=== PATIENT | male | born 1995 | race Caucasian/White ===

== ENCOUNTER 2019-11-07 21:46 | Emergency (ER) | payer SELFPAY ==
--- NOTE | 2019-11-07 22:05 | ED_ITS ---
Entered by Adrienne Real, acting as scribe for Alejandro Andrews DO HPI - Psych General: Chief Complaint: Psychiatric Symptoms Stated Complaint: SI Time Seen by Provider: 11/07/19 22:33 [facility] ED PFSH: Social History Smoking and tobacco status: current every day smoker MDM - Psych MDM Narrative: Medical decision making narrative: 24-year-old male who would call the [place] PTSD hotline earlier in the evening, as he had been drinking. Evidently, his had left him a few hours earlier and taken the kids. He denies any suicidal ideation. He was seen originally by JOSH Velez. I agree with his history, assessment, work-up, and treatment. We consulted psychiatry, who visited via telemedicine with the patient in his room. The psychiatrist feels confident that this man has not suicidal, and he continues to deny. He is otherwise medically stable. He will be allowed home. Lab Data: Labs: Lab Results 11/07/19 11/07/19 11/07/19 Range/Units 22:02 22:42 22:42 WBC 7.5 (4.0-10.0) 10^3/ uL RBC 5.40 H (4.1-5.3) 10^6/u L Hgb 15.5 (11.7-16.6) g/dL Hct 46.1 (42.0-52.0) % MCV 85.4 (80-94) fL MCH 28.7 (28.0-34.0) pg MCHC 33.6 (30.0-36.0) g/dL RDW 12.4 (12.1-15.1) % Plt Count 322 (130-400) 10^3/c mm MPV 9.6 (7.4-10.4) fL Neut % (Auto) 45.7 % Lymph % (Auto) 45.5 % [place] % (Auto) 6.8 % Eos % (Auto) 1.2 % Baso % (Auto) 0.5 % Neut # (Auto) 3.4 (1.8-7.7) 10^3/u L Lymph # (Auto) 3.4 (0.8-4.8) 10^3/u L [place] # (Auto) 0.5 (0.2-0.9) 10^3/u L Eos # (Auto) 0.1 (0.0-0.8) 10^3/u L Baso # (Auto) 0.0 (0.0-0.1) 10^3/u L Nucleated RBC % (a uto) 0 % Nucleated RBCs # 0.0 /100WBC Sodium 145 (136-145) mmol/L Potassium 4.1 (3.5-5.1) mmol/L Chloride 104 (98-107) mmol/L Carbon Dioxide 27 (22-29) mmol/L Anion Gap 18.1 (5-19) BUN 9 (6-20) mg/dL Creatinine 1.0 (0.7-1.2) mg/dL GFR Calculation 91.8 (90-130) mL/min Glucose 106 (65-115) mg/dL Calcium 9.8 (8.5-10.5) mg/dL Total Bilirubin 0.2 (0.15-1.2) mg/dL AST 19 (0-40) U/L ALT 25 (0-41) U/L Alkaline Phosphata se 57 (40-130) IU/L Total Protein 8.2 (6.6-8.7) g/dL Albumin 5.1 (3.5-5.2) g/dL Globulin 3.1 (1.3-4.6) g/dL Salicylates < 0.3 L (3-10) mg/dL Urine Opiates Scre en Negative (Negative) ng/mL Acetaminophen < 5.0 L (10-30) ug/mL Ur Barbiturates Sc reen Negative (Negative) ng/mL Ur Phencyclidine S crn Negative (Negative) ng/mL Ur Amphetamines Sc reen Negative (Negative) ng/mL U Benzodiazepines Scrn Negative (Negative) ng/mL Urine Cocaine Scre en Negative (Negative) ng/mL U Marijuana (THC) Screen Negative (Negative) ng/mL Ethyl Alcohol 228 H (0-10) mg/dL Discharge Plan Discharge Patient Disposition: Home, Self-Care Clinical Impression: Alcohol intoxication Qualifiers: Complication of substance-induced condition: uncomplicated Qualified Code(s): F10.920 - Alcohol use, unspecified with intoxication, uncomplicated Condition: Stable Prescriptions: No Action No Known Home Medications RF: 0 Discharge Orders: Discharge Order (Routine); Ordered 11/08/19 Ordered By: Get Stock Discharge Diet: Usual diet Discharge Activity: Resume usual activity Patient Instructions: Depression (ED), Alcohol Intoxication (ED) Activity Restrictions/Additional Instructions: Follow-up with your family provider follow-up with a mental health counseling as needed use a crisis line as needed stop drinking return if symptoms worsen Discharge Date/Time: 11/08/19 01:09 Coding Level of Care Code ED [place] Farmer for Lucina Sotelo The documentation recorded by the Farhan peralta Bridget Annette, accurately reflects the service I personally performed and the decisions made by Darryl guerrero Jeremy John, DO Nov 07, 2019 21:46
[2019-11-07 22:08] VITALS: BP 145/83; PULSE 120; RESP 18; TEMP 36.6; O2SAT 99; BMI 25.7
[2019-11-07 22:53] LABS: Basophils % 0.5 %; Eosinophils # 0.1 10^3/uL (0.0-0.8); Eosinophils % 1.2 %; Hematocrit 46.1 % (42.0-52.0); Hemoglobin 15.5 g/dL (11.7-16.6); Lymphocytes # 3.4 10^3/uL (0.8-4.8); Lymphocytes % 45.5 %; Mean Corpuscular HGB Conc 33.6 g/dL (30.0-36.0); Mean Corpuscular Hemoglobin 28.7 pg (28.0-34.0); Mean Corpuscular Volume 85.4 fL (80-94); Mean Platelet Volume 9.6 fL (7.4-10.4); Monocytes # 0.5 10^3/uL (0.2-0.9); Monocytes % 6.8 %; Neutrophils # 3.4 10^3/uL (1.8-7.7); Neutrophils % 45.7 %; Nucleated Red Blood Cells % 0 %; Platelet Count 322 10^3/cmm (130-400); Red Cell Distribution Width 12.4 % (12.1-15.1); White Blood Count 7.5 10^3/uL (4.0-10.0)
[2019-11-07 23:02] LABS: Amphetamines Screen Urine Negative (Negative); Barbiturates Screen Urine Negative (Negative); Benzodiazepines Screen Urine Negative (Negative); Cocaine Screen Urine Negative (Negative); Opiate Screen Urine Negative (Negative); PCP Screen Urine Negative (Negative); THC Screen Urine Negative (Negative)
[2019-11-07 23:08] LABS: Alanine Aminotransferase 25 U/L (0-41); Albumin Level 5.1 g/dL (3.5-5.2); Alcohol Level 228 mg/dL (0-10); Alkaline Phosphatase 57 IU/L (40-130); Anion Gap 18.1 (5-19); Aspartate Amino Transferase 19 U/L (0-40); Blood Urea Nitrogen 9 mg/dL (6-20); Calcium 9.8 mg/dL (8.5-10.5); Carbon Dioxide 27 mmol/L (22-29); Chloride 104 mmol/L (98-107); Globulin 3.1 g/dL (1.3-4.6); Glomerular Filtration Rate 91.8 mL/min (90-130); Glucose 106 mg/dL (65-115); Potassium 4.1 mmol/L (3.5-5.1); Sodium 145 mmol/L (136-145); Total Bilirubin 0.2 mg/dL (0.15-1.2); Total Protein 8.2 g/dL (6.6-8.7)
[2019-11-07 23:10] LABS: Acetaminophen < 5.0 ug/mL (10-30); Salicylate < 0.3 mg/dL (3-10)
--- NOTE | 2019-11-07 23:36 | ED_ITS ---
HPI - Psych General: Chief Complaint: Psychiatric Symptoms Stated Complaint: SI Time Seen by Provider: 11/07/19 22:33 History of Present Illness: HPI Narrative: Patient has been drinking heavily night he called the veterans crisis line and they felt is important that he gets evaluated so they called the police and the police brought this young man in. Patient states that his left him a few hours ago and took his children and that he was in a dark place that is why called the crisis line. He said is not suicidal never was suicidal he said he just made a bad lapse in judgment by calling them. The police asked him if he had a gun in his house he said he did and they took that gone but he patient said he never had a gun beside him or was thinking about shooting himself. He is [employer]. He is asking to go home. He said his drinking has been part of the reason that his is leaving him. 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 [employer]) Relieving factors: none Exacerbating factors: other (Alcohol) Context: recent alcohol abuse (Does drink 3-4 beers daily did drink more tonight), not taking psychiatric medications and significant life stressor Associated symptoms: Deny no associated symptoms, auditory hallucinations, visual hallucinations, delusions, depression, homicidal ideation, suicidal ideation, racing thoughts or other Treatments prior to arrival: none Review of Systems Const: Denies: fever, chills or body aches Eyes: Denies: change in vision or blurry vision ENMT: Denies: throat pain or nasal congestion Card: Denies: chest pain or shortness of breath on exertion Resp: Denies: shortness of breath, productive cough or non-productive cough GI: Denies: abdominal pain, nausea or vomiting : Denies: difficulty urinating Musc: Denies: extremity pain Skin/Breast: Denies: rash Neuro: Denies: headache Psych: Denies: depression, visual hallucinations, auditory hallucinations, suicidal ideation or homicidal ideation Jimi/Lymph: Denies: easy bruising PFSH ED PFSH: Social History Smoking and tobacco status: current every day smoker Physical Exam Const: COMMON NORMALS: no apparent distress, average body habitus and oriented x3 HENMT: COMMON NORMALS: normocephalic HEAD & SCALP: normal to inspection and normocephalic FACE & SINUS: normal facial exam Eye: COMMON NORMALS: conjunctivae normal GENERAL EYE: normal appearance of both eyes CONJUNCTIVA: Yes conjunctivae normal Neck/C-Spine: COMMON NORMALS: no JVD Chest: COMMONS NORMALS: inspection of chest normal Resp: COMMON NORMALS: normal respiratory effort and clear to auscultation bilaterally AUSCULTATION: clear to auscultation bilaterally Cardio: COMMON NORMALS: no JVD, regular rate and regular rhythm RATE: regular rate RHYTHM: regular rhythm GI: COMMON NORMALS: normal to inspection, nondistended, normoactive bowel sounds Extremity: COMMON NORMALS: normal to inspection and full ROM Neuro: COMMON NORMALS: oriented x3 Psych: THOUGHT CONTENT: No delusion(s) MDM - Psych MDM Narrative: Medical decision making narrative: I spoke with Dr. Darryl loya oncern is patient and spoke to Dr. Ingram and gave him a history. Dr. Ingram spoke to the patient on the iPad by telehealth. Dr. Ingram says patient is good to go home. Lab Data: Labs: Lab Results 11/07/19 11/07/19 11/07/19 Range/Units 22:02 22:42 22:42 WBC 7.5 (4.0-10.0) 10^3/ uL RBC 5.40 H (4.1-5.3) 10^6/u L Hgb 15.5 (11.7-16.6) g/dL Hct 46.1 (42.0-52.0) % MCV 85.4 (80-94) fL MCH 28.7 (28.0-34.0) pg MCHC 33.6 (30.0-36.0) g/dL RDW 12.4 (12.1-15.1) % Plt Count 322 (130-400) 10^3/c mm MPV 9.6 (7.4-10.4) fL Neut % (Auto) 45.7 % Lymph % (Auto) 45.5 % [place] % (Auto) 6.8 % Eos % (Auto) 1.2 % Baso % (Auto) 0.5 % Neut # (Auto) 3.4 (1.8-7.7) 10^3/u L Lymph # (Auto) 3.4 (0.8-4.8) 10^3/u L [place] # (Auto) 0.5 (0.2-0.9) 10^3/u L Eos # (Auto) 0.1 (0.0-0.8) 10^3/u L Baso # (Auto) 0.0 (0.0-0.1) 10^3/u L Nucleated RBC % (a uto) 0 % Nucleated RBCs # 0.0 /100WBC Sodium 145 (136-145) mmol/L Potassium 4.1 (3.5-5.1) mmol/L Chloride 104 (98-107) mmol/L Carbon Dioxide 27 (22-29) mmol/L Anion Gap 18.1 (5-19) BUN 9 (6-20) mg/dL Creatinine 1.0 (0.7-1.2) mg/dL GFR Calculation 91.8 (90-130) mL/min Glucose 106 (65-115) mg/dL Calcium 9.8 (8.5-10.5) mg/dL Total Bilirubin 0.2 (0.15-1.2) mg/dL AST 19 (0-40) U/L ALT 25 (0-41) U/L Alkaline Phosphata se 57 (40-130) IU/L Total Protein 8.2 (6.6-8.7) g/dL Albumin 5.1 (3.5-5.2) g/dL Globulin 3.1 (1.3-4.6) g/dL Salicylates < 0.3 L (3-10) mg/dL Urine Opiates Scre en Negative (Negative) ng/mL Acetaminophen < 5.0 L (10-30) ug/mL Ur Barbiturates Sc reen Negative (Negative) ng/mL Ur Phencyclidine S crn Negative (Negative) ng/mL Ur Amphetamines Sc reen Negative (Negative) ng/mL U Benzodiazepines Scrn Negative (Negative) ng/mL Urine Cocaine Scre en Negative (Negative) ng/mL U Marijuana (THC) Screen Negative (Negative) ng/mL Ethyl Alcohol 228 H (0-10) mg/dL Discharge Plan Discharge Patient Disposition: Home, Self-Care Clinical Impression: Alcohol intoxication Qualifiers: Complication of substance-induced condition: uncomplicated Qualified Code(s): F10.920 - Alcohol use, unspecified with intoxication, uncomplicated Condition: Stable Prescriptions: No Action No Known Home Medications RF: 0 Discharge Orders: Discharge Order (Routine); Ordered 11/08/19 Ordered By: Get Stock Discharge Diet: Usual diet Discharge Activity: Resume usual activity Patient Instructions: Depression (ED), Alcohol Intoxication (ED) Activity Restrictions/Additional Instructions: Follow-up with your family provider follow-up with a mental health counseling as needed use a crisis line as needed stop drinking return if symptoms worsen Coding Level of Care Code ED [employer] for Lucina Fwd Exam Comprehensive
--- NOTE | 2019-11-08 00:15 | PC.NURSE ---
In room with telemonitor for to speak with patient.
[2019-11-08 01:08] VITALS: BP 124/72; PULSE 78; O2SAT 98
--- NOTE | 2019-11-08 01:09 | PC.NURSE ---
Patient dc'd home in stable condition via ambulation refusing wheelchair. Discharge papers given and explained to patient with all questions asked and answered.
== END 2019-11-08 01:09 | disposition home or self-care (01) ==
PROVIDERS: Emergency Provider Nurse Practitioner Family
DX: F10.129 Alcohol abuse with intoxication, unspecified (principal); Y90.7 Blood alcohol level of 200-239 mg/100 ml; F17.200 Nicotine dependence, unspecified, uncomplicated
CPT/HCPCS: 80053; 80307; 85025; 99284